=== PATIENT | female | born 1960 | race Caucasian/White ===

== ENCOUNTER 2022-11-15 12:33 | Emergency (ER) | payer OTHER ==
[~2022-11-15] VITALS: Ht 160 cm; Wt 88.9 kg
[~2022-11-15 12:33] MED LIST: ASA81 MG PO; COZAAR25 MG; KETO10TA2 PO; LOZOL2.5 MG; MEDROL4 MG PO; PENTOXIFYLLINE25 GM MC; PROVENTIL3 ML/2.5 M IH; SIMVASTATIN10 MG; VASOFLEX TABLET1 TAB
[2022-11-15] MEDS ORDERED: ZANAFLEX2 MG PO (13:48)
[2022-11-15] MEDS ORDERED: SULINDAC200 MG PO (13:49)
[2022-11-15] MEDS ORDERED: PENTOXIFYLLINE400 MG PO (13:49)
[2022-11-15] MEDS ORDERED: CETIRIZINE HCL10 MG PO (13:49)
[2022-11-15] MEDS ORDERED: ROSUVASTATIN CAL5 MG PO (13:49)
[2022-11-15] MEDS ORDERED: MIDAZOLAM IJ (13:49)
[2022-11-15] MEDS ORDERED: MONTELUKAST SOD10 MG PO (13:49)
[2022-11-15] MEDS ORDERED: GABAPENTIN600 MG PO (13:50)
[2022-11-15] MEDS ORDERED: LINZESS290 MCG PO (13:50)
[2022-11-15] MEDS ORDERED: NABUMETONE500 MG PO (13:50)
[2022-11-15] MEDS ORDERED: METFORMIN HCL500 M4 PO (13:50)
[2022-11-15] MEDS ORDERED: AMLODIPINE BESY10 MG PO (13:50)
[2022-11-15] MEDS ORDERED: ALENDRONATE SOD70 MG PO (13:51)
[2022-11-15] MEDS ORDERED: NORFLEX100MG PO (14:19)
[2022-11-15] MEDS ORDERED: DICLOFENAC POTA50 MG PO (14:19)
== END 2022-11-15 14:30 | disposition home or self-care (01) ==
LOC: ER 12:33
DX: M54.50 Low back pain, unspecified (principal)